=== PATIENT | male | born 1995 | race Hispanic/Latino ===

== ENCOUNTER 2018-07-11 12:59 | Emergency (ER) | payer SELFPAY ==
[2018-07-11] MEDS ORDERED: Lidocaine 1% 20 ML MDV ONE (13:36)
[2018-07-11] MEDS ORDERED: Fentanyl 100 MCG/2 ML VIAL ONE (13:54)
[2018-07-11] MEDS ORDERED: KETAMINE 100 MG/ML (5ML VIAL) ONE (14:09)
--- NOTE | 2018-07-11 14:45 | RAD ---
3 VIEWS RIGHT SHOULDER: Date: 07/11/18 HISTORY: Right shoulder pain. FINDINGS: There is evidence of a right anterior shoulder dislocation. The humeral head is dislocated medially a nd anteriorly. No obvious fracture is seen. Coracoclavicular and acromioclavicular distances are with in normal limits. IMPRESSION: Anterior right shoulder dislocation. POS: [facility]
--- NOTE | 2018-07-11 16:00 | RAD ---
3 VIEWS RIGHT SHOULDER: Date: 07/11/18 COMPARISON: 07/11/18 at 1319 hours. HISTORY: Reduction of shoulder dislocation. FINDINGS: Three views of the right shoulder show reduction of the previously seen anterior shoulder dislocation . No fracture is seen. Mild soft tissue swelling is seen. IMPRESSION: Reduction of shoulder dislocation. POS: [facility]
== END 2018-07-11 16:29 | disposition home or self-care (01) ==
LOC: SCSER 12:59
DX: S43.014A Anterior dislocation of right humerus, initial encounter (principal); X58.XXXA Exposure to other specified factors, initial encounter
CPT/HCPCS: 96361; 96374; 96375; 99152; J2001; J3010